=== PATIENT | female | born 1935 | race African-American/Black ===

== ENCOUNTER 2017-07-14 20:17 | Inpatient (IN) | payer OTHER ==
[~2017-07-14] VITALS: Ht 170.2 cm; Wt 99.8 kg
[2017-07-14 20:21] VITALS: BP_SYST 115
[2017-07-14] MEDS ORDERED: LON10 GT (20:46)
[2017-07-14] MEDS ORDERED: MIRT15TA7 GT (20:46)
[2017-07-14] MEDS ORDERED: SIME80TA GT (20:46)
[2017-07-14] MEDS ORDERED: LOSA100T11 GT (20:46)
[2017-07-14] MEDS ORDERED: NEU100 GT (20:46)
[2017-07-14] MEDS ORDERED: MULT GT (20:46)
[2017-07-14] MEDS ORDERED: CARV25TA55 GT (20:46)
[2017-07-14] MEDS ORDERED: NUT.237L30 PO (20:46)
[2017-07-14] MEDS ORDERED: HYDR-1189 GT (20:46)
[2017-07-14] MEDS ORDERED: PROSTAT SF GT (20:46)
[2017-07-14] MEDS ORDERED: ASA81 GT (20:46)
[2017-07-14] MEDS ORDERED: ATOR40TA68 GT (20:46)
[2017-07-14] MEDS ORDERED: HYDR100T25 GT (20:46)
[2017-07-14 21:05] LABS: BASOPHILS % (AUTO) 0.1 % (0.0-2.0); EOSINOPHILS # (AUTO) 0.2 K/uL (0.0-0.4); EOSINOPHILS % (AUTO) 1.4 % (0.0-4.0); LYMPHOCYTES # (AUTO) 0.8 K/uL (1.0-5.5); LYMPHOCYTES % (AUTO) 5.6 % (20.5-51.5); MEAN CORPUSCULAR HEMOGLOBIN 23 pg (27-31); MEAN CORPUSCULAR HGB CONC 31 % (32-36); MEAN CORPUSCULAR VOLUME 74 fL (79.0-98.0); MONOCYTES # (AUTO) 0.6 K/uL (0.0-1.0); MONOCYTES % (AUTO) 4.5 % (1.7-9.3); NEUTROPHILS # (AUTO) 12.8 K/uL (1.8-7.7); NEUTROPHILS % (AUTO) 88.4 % (40.0-70.0); RED BLOOD CELL COUNT(AUTO) 2.41 MIL/uL (4.2-6.2); RED CELL DISTRIBUTION WIDTH 18.8 % (9.0-15.0); WHITE BLOOD COUNT (AUTO) 14.4 K/uL (4.8-10.8)
[2017-07-14 21:14] LABS: ANION GAP 3 (5-15); CALCIUM 11.2 mg/dL (8.4-11.0); CREATININE 1.16 mg/dL (0.55-1.30); GLUCOSE 151 mg/dL (70-99)
[2017-07-14 21:18] LABS: HEMATOCRIT 17.8 % (36-48); HEMOGLOBIN 5.4 g/dL (12.0-16.0); INR 1.2 (0.8-1.2)
[2017-07-14 21:21] LABS: POTASSIUM 6.5 mmol/L (3.5-5.1); UREA NITROGEN, BLOOD 106 mg/dL (8-21)
[2017-07-14 21:23] LABS: CHLORIDE 137 mmol/L (98-107); SODIUM SERUM 160 mmol/L (136-145)
[2017-07-14 21:24] LABS: PLATELET COUNT (AUTO) 132 K/uL (130-430)
[2017-07-14] MEDS ORDERED: NACL 0.9% 1,000 ML IV ONE (21:30)
[2017-07-14 21:32] LABS: ALANINE AMINOTRANSFERASE 96 U/L (12-78); ASPARTATE AMINOTRANSFERASE 65 U/L (10-37); TOTAL BILIRUBIN 0.3 mg/dL (0.0-1.0)
[2017-07-14] MEDS ORDERED: ONDANSETRON HCL 4 MG/2 ML VIAL IVP PRN (23:00)
[2017-07-14] MEDS ORDERED: MORPHINE 2 MG/ML INJ. SYRINGE IVP PRN (23:00)
[2017-07-14] MEDS ORDERED: SODIUM POLYSTYRENE SULFONATE 15 GM/60 ML UDBTL GT ONE (23:00)
[2017-07-14] MEDS ORDERED: DIPHENHYDRAMINE HCL 12.5 MG/5 ML UDC NG ONE (23:15)
[2017-07-14] MEDS: FUROSEMIDE 40 MG/4 ML VIAL IVP SCH (23:15)
[2017-07-14] MEDS ORDERED: FUROSEMIDE 40 MG/4 ML VIAL IVP ONE (23:30)
[2017-07-14] MEDS ORDERED: ACETAMINOPHEN 650 MG/20.3 ML UDC GT PRN (23:30)
[2017-07-14] MEDS ORDERED: SODIUM POLYSTYRENE SULFONATE 15 GM/60 ML UDBTL GT SCH (23:30)
[2017-07-15] VITALS (10 sets, daily range): BP systolic 88–127
[2017-07-15 00:05] LABS: TOTAL IRON BIND. CAPACITY 221 ug/dL (250-450)
[2017-07-15 00:17] LABS: FREE T4 (FREE THYROXINE) 0.5 ng/dL (0.6-1.6); PHOSPHORUS 2.5 mg/dL (2.7-4.5); THYROID STIMULATING HORMONE 3.99 uIu/mL (0.34-4.82)
[2017-07-15] MEDS: NACL 0.9% 1,000 ML IV SCH ×3 (00:36→14:19)
[2017-07-15] MEDS: ACETAMINOPHEN 650 MG/20.3 ML UDC GT SCH ×2 (00:36→08:18)
[2017-07-15] MEDS ORDERED: NACL 0.9% 1,000 ML IV ONE (01:15)
[2017-07-15] MEDS ORDERED: DIPHENHYDRAMINE HCL 12.5 MG/5 ML UDC PO ONE (01:15)
[2017-07-15] MEDS ORDERED: PIPERACILLIN/TAZO 3.375/DEX-IS 50 ML IV ONE (01:30)
[2017-07-15] MEDS ORDERED: PIPERACILLIN/TAZOBACTAM 3.375 GM/VIAL (ZOSYN) IV ONE ×2 (01:43→02:26)
[2017-07-15 02:25] LABS: CALCIUM 10.7 mg/dL (8.4-11.0); CREATININE 1.11 mg/dL (0.55-1.30); GLUCOSE 111 mg/dL (70-99); SODIUM SERUM 157 mmol/L (136-145); UREA NITROGEN, BLOOD 100 mg/dL (8-21)
[2017-07-15 02:28] LABS: CHLORIDE 137 mmol/L (98-107); POTASSIUM 6.2 mmol/L (3.5-5.1)
[2017-07-15 02:29] LABS: ANION GAP < 3 (5-15)
[2017-07-15] MEDS ORDERED: SODIUM POLYSTYRENE SULFONATE 15 GM/60 ML UDBTL GT ONE (03:00)
[2017-07-15] MEDS ORDERED: CALCIUM GLUCONATE 2 GM in NS 100 ML IV ONE (03:00)
[2017-07-15] MEDS ORDERED: INSULIN REGULAR, HUMAN 100 UNITS/ML, 10 ML VIAL IVP ONE (03:00)
[2017-07-15] MEDS ORDERED: DEXTROSE 50% JECT 50 ML DISP.SYRIN IVP ONE (03:00)
[2017-07-15] MEDS ORDERED: SODIUM POLYSTYRENE SULFONATE 15 GM/60 ML UDBTL ONE ×2 (03:45→17:27)
[2017-07-15] MEDS ORDERED: CALCIUM GLUCONATE 1 GM/10 ML VIAL ONE ×2 (04:05→04:07)
[2017-07-15 04:48] LABS: CALCIUM 10.6 mg/dL (8.4-11.0); CHOLESTEROL 52 mg/dL (<200); CREATININE 1.18 mg/dL (0.55-1.30); GLUCOSE 177 mg/dL (70-99); HDL CHOLESTEROL 35 mg/dL (>55); LDL CHOLESTEROL 26 mg/dL (<100); POTASSIUM 5.4 mmol/L (3.5-5.1); SODIUM SERUM 157 mmol/L (136-145); TRIGLYCERIDES 37 mg/dL (30-150); UREA NITROGEN, BLOOD 100 mg/dL (8-21)
[2017-07-15 04:54] LABS: ANION GAP < 3 (5-15); CHLORIDE 136 mmol/L (98-107)
[2017-07-15 05:25] LABS: CLARITY/URINE CLOUDY (CLEAR); COLOR,URINE YELLOW (YELLOW)
[2017-07-15 05:26] LABS: GLUCOSE,URINE NEGATIVE (NEGATIVE); KETONES,URINE 2+ (NEGATIVE); PROTEIN URINE 1+ (NEGATIVE)
[2017-07-15 05:27] LABS: BILIRUBIN,URINE NEGATIVE (NEGATIVE); BLOOD, URINE 3+ (NEGATIVE); LEUKOCYTE ESTERASE ,URINE 4+ (NEGATIVE); NITRITE, URINE POSITIVE (NEGATIVE); UROBILINOGEN,URINE 0.2 (0.2-1.0)
[2017-07-15 05:32] LABS: BACTERIA,URINE MODERATE /HPF (None Seen); RBC,URINE >100 /HPF (0-3); WBC,URINE >100 /HPF (0-3)
[2017-07-15] MEDS: PIPERACILLIN/TAZO 3.375/DEX-IS 50 ML IV SCH ×3 (06:51→17:22)
[2017-07-15] MEDS: GABAPENTIN 100 MG CAPSULE GT SCH ×3 (08:18→21:35)
[2017-07-15] MEDS: CARVEDILOL 25 MG TABLET (COREG) GT SCH ×2 (08:27→21:34)
[2017-07-15] MEDS: MINOXIDIL 10 MG TABLET (LONITEN) GT SCH (08:27)
[2017-07-15] MEDS: LOSARTAN POTASSIUM 50 MG TABLET (COZAAR) GT SCH (08:27)
[2017-07-15] MEDS: FUROSEMIDE 40 MG/4 ML VIAL IVP SCH (12:03)
[2017-07-15 15:30] LABS: BASOPHILS % (AUTO) 0.2 % (0.0-2.0); EOSINOPHILS # (AUTO) 0.2 K/uL (0.0-0.4); EOSINOPHILS % (AUTO) 1.4 % (0.0-4.0); HEMATOCRIT 25.3 % (36-48); HEMOGLOBIN 7.8 g/dL (12.0-16.0); LYMPHOCYTES # (AUTO) 0.8 K/uL (1.0-5.5); LYMPHOCYTES % (AUTO) 5.8 % (20.5-51.5); MEAN CORPUSCULAR HEMOGLOBIN 24 pg (27-31); MEAN CORPUSCULAR HGB CONC 31 % (32-36); MONOCYTES # (AUTO) 0.6 K/uL (0.0-1.0); MONOCYTES % (AUTO) 4.7 % (1.7-9.3); NEUTROPHILS # (AUTO) 11.8 K/uL (1.8-7.7); NEUTROPHILS % (AUTO) 87.9 % (40.0-70.0); PLATELET COUNT (AUTO) 144 K/uL (130-430); RED BLOOD CELL COUNT(AUTO) 3.21 MIL/uL (4.2-6.2); RED CELL DISTRIBUTION WIDTH 20.7 % (9.0-15.0); WHITE BLOOD COUNT (AUTO) 13.4 K/uL (4.8-10.8)
[2017-07-15 15:32] LABS: MEAN CORPUSCULAR VOLUME 79 fL (79.0-98.0)
[2017-07-15 15:36] LABS: CREATININE 1.14 mg/dL (0.55-1.30); GLUCOSE 137 mg/dL (70-99); POTASSIUM 5.2 mmol/L (3.5-5.1); UREA NITROGEN, BLOOD 93 mg/dL (8-21)
[2017-07-15 15:44] LABS: ANION GAP 5 (5-15); SODIUM SERUM 159 mmol/L (136-145)
[2017-07-15 15:53] LABS: CHLORIDE 134 mmol/L (98-107)
[2017-07-15] MEDS: LACTULOSE 20 GM/30 ML UDC PO SCH ×2 (17:22→21:37)
[2017-07-15] MEDS: SODIUM POLYSTYRENE SULFONATE 15 GM/60 ML UDBTL GT SCH ×2 (17:23→21:37)
[2017-07-15] MEDS ORDERED: LACTULOSE 20 GM/30 ML UDC ONE (17:26)
[2017-07-15] MEDS: 0.45% NACL 1,000 ML IV SCH ×2 (18:38→22:30)
[2017-07-15 20:43] LABS: GLUCOSE 144 mg/dL (70-99); POTASSIUM 4.8 mmol/L (3.5-5.1)
[2017-07-15 20:54] LABS: UREA NITROGEN, BLOOD 88 mg/dL (8-21)
[2017-07-15] MEDS ORDERED: FUROSEMIDE 20 MG/2 ML VIAL IVP ONE (21:00)
[2017-07-15 21:06] LABS: ANION GAP 6 (5-15)
[2017-07-15 21:11] LABS: CHLORIDE 137 mmol/L (98-107); SODIUM SERUM 162 mmol/L (136-145)
[2017-07-15] MEDS: ATORVASTATIN 20 MG TABLET GT SCH (21:35)
[2017-07-15] MEDS: MIRTAZAPINE 15 MG TABLET GT SCH (21:36)
[2017-07-16] MEDS: PIPERACILLIN/TAZO 3.375/DEX-IS 50 ML IV SCH ×4 (00:27→18:16)
[2017-07-16 00:37] VITALS: BP_SYST 103
[2017-07-16] MEDS: 0.45% NACL 1,000 ML IV SCH ×5 (02:30→18:15)
[2017-07-16] MEDS: SODIUM POLYSTYRENE SULFONATE 15 GM/60 ML UDBTL GT SCH (04:11)
[2017-07-16 04:20] VITALS: BP_SYST 137
[2017-07-16 06:44] LABS: BASOPHILS % (AUTO) 0.1 % (0.0-2.0); EOSINOPHILS # (AUTO) 0.2 K/uL (0.0-0.4); EOSINOPHILS % (AUTO) 1.3 % (0.0-4.0); HEMOGLOBIN 8.1 g/dL (12.0-16.0); LYMPHOCYTES # (AUTO) 0.9 K/uL (1.0-5.5); LYMPHOCYTES % (AUTO) 5.7 % (20.5-51.5); MEAN CORPUSCULAR HEMOGLOBIN 24 pg (27-31); MEAN CORPUSCULAR HGB CONC 31 % (32-36); MEAN CORPUSCULAR VOLUME 78 fL (79.0-98.0); MONOCYTES # (AUTO) 0.6 K/uL (0.0-1.0); MONOCYTES % (AUTO) 3.8 % (1.7-9.3); NEUTROPHILS # (AUTO) 14.8 K/uL (1.8-7.7); NEUTROPHILS % (AUTO) 89.1 % (40.0-70.0); PLATELET COUNT (AUTO) 119 K/uL (130-430); RED BLOOD CELL COUNT(AUTO) 3.35 MIL/uL (4.2-6.2); RED CELL DISTRIBUTION WIDTH 20.9 % (9.0-15.0); WHITE BLOOD COUNT (AUTO) 16.5 K/uL (4.8-10.8)
[2017-07-16 07:07] LABS: ALANINE AMINOTRANSFERASE 110 U/L (12-78); ANION GAP 5 (5-15); ASPARTATE AMINOTRANSFERASE 85 U/L (10-37); CREATININE 1.22 mg/dL (0.55-1.30); GLUCOSE 158 mg/dL (70-99); POTASSIUM 4.4 mmol/L (3.5-5.1); TOTAL BILIRUBIN 0.4 mg/dL (0.0-1.0); UREA NITROGEN, BLOOD 84 mg/dL (8-21)
[2017-07-16 07:14] LABS: SODIUM SERUM 161 mmol/L (136-145)
[2017-07-16 07:15] LABS: CHLORIDE 136 mmol/L (98-107)
[2017-07-16 08:55] VITALS: BP_SYST 156
[2017-07-16] MEDS: GABAPENTIN 100 MG CAPSULE GT SCH ×3 (10:26→21:37)
[2017-07-16] MEDS: PANTOPRAZOLE GRANULES PACKET 40 MG GT SCH (10:26)
[2017-07-16] MEDS: MINOXIDIL 10 MG TABLET (LONITEN) GT SCH (10:31)
[2017-07-16] MEDS: LOSARTAN POTASSIUM 50 MG TABLET (COZAAR) GT SCH (10:31)
[2017-07-16] MEDS: LACTULOSE 20 GM/30 ML UDC PO SCH ×3 (10:32→21:37)
[2017-07-16] MEDS: CARVEDILOL 25 MG TABLET (COREG) GT SCH ×2 (10:32→21:38)
[2017-07-16 11:45] VITALS: BP_SYST 152
[2017-07-16 12:07] LABS: FOLATE (FOLIC ACID) 10.9 ng/mL (>3.0); T4 (THYROXINE) 5.1 ug/dL (4.5-12.0)
[2017-07-16 16:44] VITALS: BP_SYST 135
[2017-07-16 17:46] LABS: ANION GAP 8 (5-15); CALCIUM 10.9 mg/dL (8.4-11.0); CREATININE 1.28 mg/dL (0.55-1.30); GLUCOSE 175 mg/dL (70-99); POTASSIUM 4.2 mmol/L (3.5-5.1); UREA NITROGEN, BLOOD 79 mg/dL (8-21)
[2017-07-16 17:52] LABS: SODIUM SERUM 163 mmol/L (136-145)
[2017-07-16 17:53] LABS: CHLORIDE 137 mmol/L (98-107)
[2017-07-16 20:00] VITALS: BP_SYST 131
[2017-07-16] MEDS: MIRTAZAPINE 15 MG TABLET GT SCH (21:37)
[2017-07-16] MEDS: ATORVASTATIN 20 MG TABLET GT SCH (21:37)
[2017-07-16] MEDS: D5W 1,000 ML IV SCH (21:38)
[2017-07-17] MEDS: PIPERACILLIN/TAZO 3.375/DEX-IS 50 ML IV SCH ×5 (00:18→23:57)
[2017-07-17 00:42] VITALS: BP_SYST 94
[2017-07-17 04:01] VITALS: BP_SYST 122
[2017-07-17 05:59] LABS: EOSINOPHILS # (AUTO) 0.2 K/uL (0.0-0.4); LYMPHOCYTES # (AUTO) 0.8 K/uL (1.0-5.5)
[2017-07-17] MEDS: D5W 1,000 ML IV SCH ×2 (06:16→21:47)
[2017-07-17 06:45] LABS: ALANINE AMINOTRANSFERASE 73 U/L (12-78); ALBUMIN 1.6 g/dL (3.4-4.8); ANION GAP 8 (5-15); ASPARTATE AMINOTRANSFERASE 44 U/L (10-37); CALCIUM 10.3 mg/dL (8.4-11.0); GLUCOSE 269 mg/dL (70-99); TOTAL BILIRUBIN 0.3 mg/dL (0.0-1.0); UREA NITROGEN, BLOOD 73 mg/dL (8-21)
[2017-07-17 06:49] LABS: BASOPHILS % (AUTO) 0.2 % (0.0-2.0); EOSINOPHILS % (AUTO) 1.5 % (0.0-4.0); LYMPHOCYTES % (AUTO) 7.4 % (20.5-51.5); MEAN CORPUSCULAR HEMOGLOBIN 24 pg (27-31); MEAN CORPUSCULAR HGB CONC 31 % (32-36); MEAN CORPUSCULAR VOLUME 78 fL (79.0-98.0); MONOCYTES # (AUTO) 0.4 K/uL (0.0-1.0); MONOCYTES % (AUTO) 3.9 % (1.7-9.3); PLATELET COUNT (AUTO) 101 K/uL (130-430); RED BLOOD CELL COUNT(AUTO) 2.75 MIL/uL (4.2-6.2); WHITE BLOOD COUNT (AUTO) 11.4 K/uL (4.8-10.8)
[2017-07-17 06:51] LABS: SODIUM SERUM 160 mmol/L (136-145)
[2017-07-17 06:52] LABS: CHLORIDE 133 mmol/L (98-107)
[2017-07-17 06:54] LABS: HEMATOCRIT 21.4 % (36-48); HEMOGLOBIN 6.7 g/dL (12.0-16.0)
[2017-07-17 09:57] VITALS: BP_SYST 147
[2017-07-17] MEDS: LACTULOSE 20 GM/30 ML UDC PO SCH ×3 (09:59→21:27)
[2017-07-17] MEDS: PANTOPRAZOLE GRANULES PACKET 40 MG GT SCH (10:00)
[2017-07-17] MEDS: GABAPENTIN 100 MG CAPSULE GT SCH ×3 (10:00→21:27)
[2017-07-17] MEDS: MINOXIDIL 10 MG TABLET (LONITEN) GT SCH (10:00)
[2017-07-17] MEDS: LOSARTAN POTASSIUM 50 MG TABLET (COZAAR) GT SCH (10:00)
[2017-07-17] MEDS: CARVEDILOL 25 MG TABLET (COREG) GT SCH ×2 (10:01→21:00)
[2017-07-17 12:13] VITALS: BP_SYST 117
[2017-07-17 16:02] VITALS: BP_SYST 124
[2017-07-17 20:00] VITALS: BP_SYST 98
[2017-07-17] MEDS: MIRTAZAPINE 15 MG TABLET GT SCH (21:27)
[2017-07-17] MEDS: ATORVASTATIN 20 MG TABLET GT SCH (21:27)
[2017-07-18] VITALS (9 sets, daily range): BP systolic 94–144
[2017-07-18] MEDS: PIPERACILLIN/TAZO 3.375/DEX-IS 50 ML IV SCH (05:29)
[2017-07-18 07:26] LABS: BASOPHILS % (AUTO) 0.2 % (0.0-2.0); EOSINOPHILS # (AUTO) 0.2 K/uL (0.0-0.4); EOSINOPHILS % (AUTO) 2.1 % (0.0-4.0); LYMPHOCYTES # (AUTO) 0.7 K/uL (1.0-5.5); LYMPHOCYTES % (AUTO) 9.9 % (20.5-51.5); MEAN CORPUSCULAR HEMOGLOBIN 25 pg (27-31); MEAN CORPUSCULAR HGB CONC 32 % (32-36); MEAN CORPUSCULAR VOLUME 79 fL (79.0-98.0); MONOCYTES # (AUTO) 0.4 K/uL (0.0-1.0); NEUTROPHILS # (AUTO) 6.1 K/uL (1.8-7.7); NEUTROPHILS % (AUTO) 81.8 % (40.0-70.0); PLATELET COUNT (AUTO) 90 K/uL (130-430); RED BLOOD CELL COUNT(AUTO) 2.76 MIL/uL (4.2-6.2); RED CELL DISTRIBUTION WIDTH 21.1 % (9.0-15.0)
[2017-07-18] MEDS: D5W 1,000 ML IV SCH (07:47)
[2017-07-18 07:51] LABS: WHITE BLOOD COUNT (AUTO) 7.4 K/uL (4.8-10.8)
[2017-07-18 07:55] LABS: HEMATOCRIT 21.8 % (36-48); HEMOGLOBIN 6.9 g/dL (12.0-16.0)
[2017-07-18] MEDS: LACTULOSE 20 GM/30 ML UDC PO SCH ×3 (09:00→21:38)
[2017-07-18] MEDS: GABAPENTIN 100 MG CAPSULE GT SCH ×3 (09:00→21:37)
[2017-07-18 12:45] LABS: ANION GAP 11 (5-15); GLUCOSE 321 mg/dL (70-99); POTASSIUM 4.2 mmol/L (3.5-5.1); SODIUM SERUM 157 mmol/L (136-145)
[2017-07-18 12:46] LABS: ALANINE AMINOTRANSFERASE 64 U/L (12-78); ASPARTATE AMINOTRANSFERASE 30 U/L (10-37); CALCIUM 10.4 mg/dL (8.4-11.0); TOTAL BILIRUBIN 0.3 mg/dL (0.0-1.0); UREA NITROGEN, BLOOD 61 mg/dL (8-21)
[2017-07-18 12:47] LABS: LIPASE 168 U/L (73-393)
[2017-07-18 12:49] LABS: CHLORIDE 124 mmol/L (98-107)
[2017-07-18 13:00] LABS: BILIRUBIN,DIRECT 0.1 mg/dL (0.0-0.3)
[2017-07-18] MEDS: MEROPENEM 1 GM in NS 100 ML IV SCH ×2 (14:33→21:30)
[2017-07-18] MEDS: PANTOPRAZOLE GRANULES PACKET 40 MG GT SCH (15:39)
[2017-07-18] MEDS: MINOXIDIL 10 MG TABLET (LONITEN) GT SCH (15:40)
[2017-07-18] MEDS: CARVEDILOL 25 MG TABLET (COREG) GT SCH ×2 (15:40→21:00)
[2017-07-18] MEDS: LOSARTAN POTASSIUM 50 MG TABLET (COZAAR) GT SCH (15:41)
[2017-07-18] MEDS: INSULIN REGULAR, HUMAN 100 UNITS/ML, 10 ML VIAL (novoLIN R) SUBCUT PRN (17:58)
[2017-07-18] MEDS ORDERED: NACL 0.9% 1,000 ML IV ONE (18:15)
[2017-07-18] MEDS: ATORVASTATIN 20 MG TABLET GT SCH (21:37)
[2017-07-18] MEDS: MIRTAZAPINE 15 MG TABLET GT SCH (21:38)
[2017-07-18] MEDS ORDERED: GOLYTELY / COLYTE SOLUTION 4 LITERS GT ONE (21:50)
[2017-07-18 22:33] LABS: ANION GAP 12 (5-15); CALCIUM 10.3 mg/dL (8.4-11.0); CREATININE 1.21 mg/dL (0.55-1.30); GLUCOSE 308 mg/dL (70-99); POTASSIUM 4.6 mmol/L (3.5-5.1); SODIUM SERUM 152 mmol/L (136-145); UREA NITROGEN, BLOOD 61 mg/dL (8-21)
[2017-07-18 22:37] LABS: CHLORIDE 125 mmol/L (98-107)
[2017-07-19] VITALS (7 sets, daily range): BP systolic 121–160
[2017-07-19] MEDS: MEROPENEM 1 GM in NS 100 ML IV SCH (05:37)
[2017-07-19 07:30] LABS: BASOPHILS % (AUTO) 0.1 % (0.0-2.0); EOSINOPHILS # (AUTO) 0.2 K/uL (0.0-0.4); EOSINOPHILS % (AUTO) 2.6 % (0.0-4.0); HEMATOCRIT 31.8 % (36-48); HEMOGLOBIN 10.2 g/dL (12.0-16.0); LYMPHOCYTES # (AUTO) 0.8 K/uL (1.0-5.5); LYMPHOCYTES % (AUTO) 11.4 % (20.5-51.5); MEAN CORPUSCULAR HEMOGLOBIN 26 pg (27-31); MEAN CORPUSCULAR HGB CONC 32 % (32-36); MEAN CORPUSCULAR VOLUME 81 fL (79.0-98.0); MONOCYTES # (AUTO) 0.4 K/uL (0.0-1.0); MONOCYTES % (AUTO) 5.4 % (1.7-9.3); NEUTROPHILS # (AUTO) 5.2 K/uL (1.8-7.7); NEUTROPHILS % (AUTO) 80.5 % (40.0-70.0); PLATELET COUNT (AUTO) 101 K/uL (130-430); RED BLOOD CELL COUNT(AUTO) 3.93 MIL/uL (4.2-6.2); RED CELL DISTRIBUTION WIDTH 19.6 % (9.0-15.0)
[2017-07-19 07:55] LABS: INR 1.2 (0.8-1.2)
[2017-07-19 08:00] LABS: ANION GAP 11 (5-15); CALCIUM 10.2 mg/dL (8.4-11.0); CREATININE 1.15 mg/dL (0.55-1.30); GLUCOSE 176 mg/dL (70-99); SODIUM SERUM 154 mmol/L (136-145); UREA NITROGEN, BLOOD 53 mg/dL (8-21)
[2017-07-19 08:04] LABS: CHLORIDE 125 mmol/L (98-107)
[2017-07-19 08:13] LABS: ALANINE AMINOTRANSFERASE 59 U/L (12-78); ALBUMIN 1.9 g/dL (3.4-4.8); ASPARTATE AMINOTRANSFERASE 33 U/L (10-37); TOTAL BILIRUBIN 0.4 mg/dL (0.0-1.0)
[2017-07-19] MEDS ORDERED: MEPERIDINE HCL/PF 100 MG/ML AMP ONE (08:14)
[2017-07-19] MEDS ORDERED: MIDAZOLAM HCL 5 MG/5 ML VIAL ONE ×2 (08:14→17:17)
[2017-07-19 08:16] LABS: WHITE BLOOD COUNT (AUTO) 6.6 K/uL (4.8-10.8)
[2017-07-19] MEDS: PANTOPRAZOLE GRANULES PACKET 40 MG GT SCH (09:00)
[2017-07-19] MEDS: GABAPENTIN 100 MG CAPSULE GT SCH ×3 (09:00→21:18)
[2017-07-19] MEDS: MINOXIDIL 10 MG TABLET (LONITEN) GT SCH (09:00)
[2017-07-19] MEDS: LOSARTAN POTASSIUM 50 MG TABLET (COZAAR) GT SCH (09:00)
[2017-07-19] MEDS: LACTULOSE 20 GM/30 ML UDC PO SCH ×3 (09:00→21:18)
[2017-07-19] MEDS: CARVEDILOL 25 MG TABLET (COREG) GT SCH ×2 (09:00→21:00)
[2017-07-19] MEDS ORDERED: D5/0.45 NS 1,000 ML IV SCH (10:00)
[2017-07-19 10:19] LABS: HEMOGLOBIN A1C 5.8 % (4.8-5.6)
[2017-07-19] MEDS: cefTRIAXone 1 GM in D5W 50 ML IV SCH ×2 (13:54→13:57)
[2017-07-19] MEDS ORDERED: MEPERIDINE HCL/PF 50 MG/ML AMP ONE (17:16)
[2017-07-19] MEDS: D5W 1,000 ML IV SCH (18:52)
[2017-07-19] MEDS: COLISTIMETHATE SODIUM 150 MG VIAL INH SCH (19:40)
[2017-07-19] MEDS: MIRTAZAPINE 15 MG TABLET GT SCH (21:19)
[2017-07-19] MEDS: ATORVASTATIN 20 MG TABLET GT SCH (21:19)
[2017-07-20] MEDS: INSULIN REGULAR, HUMAN 100 UNITS/ML, 10 ML VIAL (novoLIN R) SUBCUT PRN ×5 (01:23→23:49)
[2017-07-20 03:46] VITALS: BP_SYST 120
[2017-07-20] MEDS: D5W 1,000 ML IV SCH ×3 (05:25→23:53)
[2017-07-20 07:32] LABS: BASOPHILS % (AUTO) 0.1 % (0.0-2.0); EOSINOPHILS # (AUTO) 0.1 K/uL (0.0-0.4); EOSINOPHILS % (AUTO) 1.6 % (0.0-4.0); HEMATOCRIT 30.8 % (36-48); HEMOGLOBIN 10.2 g/dL (12.0-16.0); LYMPHOCYTES # (AUTO) 0.4 K/uL (1.0-5.5); LYMPHOCYTES % (AUTO) 5.7 % (20.5-51.5); MEAN CORPUSCULAR HEMOGLOBIN 26 pg (27-31); MEAN CORPUSCULAR HGB CONC 33 % (32-36); MEAN CORPUSCULAR VOLUME 80 fL (79.0-98.0); MONOCYTES # (AUTO) 0.4 K/uL (0.0-1.0); MONOCYTES % (AUTO) 5.3 % (1.7-9.3); NEUTROPHILS # (AUTO) 6.7 K/uL (1.8-7.7); NEUTROPHILS % (AUTO) 87.3 % (40.0-70.0); RED BLOOD CELL COUNT(AUTO) 3.86 MIL/uL (4.2-6.2); RED CELL DISTRIBUTION WIDTH 20.3 % (9.0-15.0); WHITE BLOOD COUNT (AUTO) 7.6 K/uL (4.8-10.8)
[2017-07-20] MEDS: COLISTIMETHATE SODIUM 150 MG VIAL INH SCH ×2 (07:42→19:51)
[2017-07-20 07:49] LABS: ALANINE AMINOTRANSFERASE 51 U/L (12-78); ALBUMIN 1.7 g/dL (3.4-4.8); ANION GAP 10 (5-15); ASPARTATE AMINOTRANSFERASE 48 U/L (10-37); CALCIUM 10.5 mg/dL (8.4-11.0); CREATININE 1.01 mg/dL (0.55-1.30); GLUCOSE 222 mg/dL (70-99); POTASSIUM 3.9 mmol/L (3.5-5.1); SODIUM SERUM 150 mmol/L (136-145); TOTAL BILIRUBIN 0.4 mg/dL (0.0-1.0); UREA NITROGEN, BLOOD 51 mg/dL (8-21)
[2017-07-20 07:58] LABS: CHLORIDE 124 mmol/L (98-107)
[2017-07-20 08:23] LABS: PLATELET COUNT (AUTO) 96 K/uL (130-430)
[2017-07-20] MEDS: GABAPENTIN 100 MG CAPSULE GT SCH ×3 (09:43→22:52)
[2017-07-20] MEDS: PANTOPRAZOLE GRANULES PACKET 40 MG GT SCH (09:49)
[2017-07-20] MEDS: MINOXIDIL 10 MG TABLET (LONITEN) GT SCH (09:51)
[2017-07-20] MEDS: LACTULOSE 20 GM/30 ML UDC PO SCH ×3 (09:52→22:51)
[2017-07-20] MEDS: LOSARTAN POTASSIUM 50 MG TABLET (COZAAR) GT SCH (10:03)
[2017-07-20] MEDS: CARVEDILOL 25 MG TABLET (COREG) GT SCH ×2 (10:06→22:53)
[2017-07-20 11:31] VITALS: BP_SYST 148
[2017-07-20 14:34] LABS: ATYPICAL pANCA <1:20 titer (Neg:<1:20); CYTOPLASMIC (C-ANCA) <1:20 titer (Neg:<1:20); CYTOPLASMIC (P-ANCA) <1:20 titer (Neg:<1:20)
[2017-07-20 15:23] VITALS: BP_SYST 130
[2017-07-20 19:45] VITALS: BP_SYST 137
[2017-07-20] MEDS: CEFTAZIDIME 1 GM in D5W 50 ML IV SCH (22:51)
[2017-07-20] MEDS: ATORVASTATIN 20 MG TABLET GT SCH (22:52)
[2017-07-20] MEDS: MIRTAZAPINE 15 MG TABLET GT SCH (22:53)
[2017-07-21 00:19] VITALS: BP_SYST 106
[2017-07-21 05:26] VITALS: BP_SYST 107
[2017-07-21] MEDS: INSULIN REGULAR, HUMAN 100 UNITS/ML, 10 ML VIAL (novoLIN R) SUBCUT PRN ×3 (06:31→17:43)
[2017-07-21 08:00] VITALS: BP_SYST 125
[2017-07-21] MEDS: CARVEDILOL 25 MG TABLET (COREG) GT SCH ×2 (09:00→20:52)
[2017-07-21] MEDS: CEFTAZIDIME 1 GM in D5W 50 ML IV SCH ×2 (09:24→20:51)
[2017-07-21] MEDS: LOSARTAN POTASSIUM 50 MG TABLET (COZAAR) GT SCH (09:25)
[2017-07-21] MEDS: MINOXIDIL 10 MG TABLET (LONITEN) GT SCH (09:28)
[2017-07-21] MEDS: GABAPENTIN 100 MG CAPSULE GT SCH ×3 (09:41→20:52)
[2017-07-21] MEDS: PANTOPRAZOLE GRANULES PACKET 40 MG GT SCH (09:41)
[2017-07-21] MEDS: D5W 1,000 ML IV SCH ×2 (09:43→19:00)
[2017-07-21 09:51] LABS: ANION GAP 9 (5-15); CALCIUM 10.2 mg/dL (8.4-11.0); CHLORIDE 118 mmol/L (98-107); GLUCOSE 205 mg/dL (70-99); POTASSIUM 3.7 mmol/L (3.5-5.1); SODIUM SERUM 144 mmol/L (136-145); UREA NITROGEN, BLOOD 46 mg/dL (8-21)
[2017-07-21 12:10] VITALS: BP_SYST 112
[2017-07-21 16:26] VITALS: BP_SYST 146
[2017-07-21] MEDS: COLISTIMETHATE SODIUM 150 MG VIAL INH SCH (19:53)
[2017-07-21] MEDS: ATORVASTATIN 20 MG TABLET GT SCH (20:51)
[2017-07-21] MEDS: MIRTAZAPINE 15 MG TABLET GT SCH (20:51)
[2017-07-22 00:36] VITALS: BP_SYST 119
[2017-07-22] MEDS: INSULIN REGULAR, HUMAN 100 UNITS/ML, 10 ML VIAL (novoLIN R) SUBCUT PRN ×3 (01:27→12:25)
[2017-07-22] MEDS: D5W 1,000 ML IV SCH (05:46)
[2017-07-22 05:56] VITALS: BP_SYST 105
[2017-07-22 06:52] LABS: BASOPHILS % (AUTO) 0.3 % (0.0-2.0); EOSINOPHILS # (AUTO) 0.2 K/uL (0.0-0.4); EOSINOPHILS % (AUTO) 2.8 % (0.0-4.0); HEMATOCRIT 31.2 % (36-48); HEMOGLOBIN 10.1 g/dL (12.0-16.0); LYMPHOCYTES # (AUTO) 0.5 K/uL (1.0-5.5); LYMPHOCYTES % (AUTO) 6.4 % (20.5-51.5); MEAN CORPUSCULAR HEMOGLOBIN 26 pg (27-31); MEAN CORPUSCULAR HGB CONC 32 % (32-36); MEAN CORPUSCULAR VOLUME 81 fL (79.0-98.0); MONOCYTES # (AUTO) 0.1 K/uL (0.0-1.0); NEUTROPHILS # (AUTO) 6.6 K/uL (1.8-7.7); NEUTROPHILS % (AUTO) 88.5 % (40.0-70.0); RED BLOOD CELL COUNT(AUTO) 3.87 MIL/uL (4.2-6.2); RED CELL DISTRIBUTION WIDTH 21.4 % (9.0-15.0); WHITE BLOOD COUNT (AUTO) 7.4 K/uL (4.8-10.8)
[2017-07-22 07:00] LABS: ANION GAP 8 (5-15); CALCIUM 10.2 mg/dL (8.4-11.0); CHLORIDE 115 mmol/L (98-107); CREATININE 1.07 mg/dL (0.55-1.30); GLUCOSE 180 mg/dL (70-99); POTASSIUM 4.1 mmol/L (3.5-5.1); SODIUM SERUM 140 mmol/L (136-145); UREA NITROGEN, BLOOD 49 mg/dL (8-21)
[2017-07-22] MEDS: COLISTIMETHATE SODIUM 150 MG VIAL INH SCH (07:33)
[2017-07-22 08:16] LABS: PLATELET COUNT (AUTO) 126 K/uL (130-430)
[2017-07-22] MEDS: CARVEDILOL 25 MG TABLET (COREG) GT SCH (09:00)
[2017-07-22] MEDS: CEFTAZIDIME 1 GM in D5W 50 ML IV SCH (09:22)
[2017-07-22] MEDS: PANTOPRAZOLE GRANULES PACKET 40 MG GT SCH (09:23)
[2017-07-22] MEDS: GABAPENTIN 100 MG CAPSULE GT SCH ×2 (09:26→15:50)
[2017-07-22] MEDS: MINOXIDIL 10 MG TABLET (LONITEN) GT SCH (09:26)
[2017-07-22] MEDS: LOSARTAN POTASSIUM 50 MG TABLET (COZAAR) GT SCH (09:27)
[2017-07-22 11:26] VITALS: BP_SYST 125
[2017-07-22 13:23] VITALS: BP_SYST 124
[2017-07-22 16:13] VITALS: BP_SYST 171
[2017-07-22 17:14] VITALS: BP_SYST 120
== END 2017-07-22 19:10 | DRG 870 ==
LOC: SED 20:17 → STU 22:58
PROVIDERS: ADMIT Family Medicine; ATTEND Family Medicine
PROC: 5A1955Z Respiratory Ventilation, Greater than 96 Consecutive Hours (ICD-10-PCS; principal; 2017-07-14)
PROC: 30233N1 Transfusion of Nonautologous Red Blood Cells into Peripheral Vein, Percutaneous Approach (ICD-10-PCS; 2017-07-15)
PROC: 0DBP8ZZ Excision of Rectum, Via Natural or Artificial Opening Endoscopic (ICD-10-PCS; 2017-07-19)
PROC: 0DBL8ZZ Excision of Transverse Colon, Via Natural or Artificial Opening Endoscopic (ICD-10-PCS; 2017-07-19)
PROC: 0DB78ZX Excision of Stomach, Pylorus, Via Natural or Artificial Opening Endoscopic, Diagnostic (ICD-10-PCS; 2017-07-19 09:00)
DX: A41.9 Sepsis, unspecified organism (principal); J69.0 Pneumonitis due to inhalation of food and vomit; E43 Unspecified severe protein-calorie malnutrition; J90 Pleural effusion, not elsewhere classified; G93.40 Encephalopathy, unspecified; N17.9 Acute kidney failure, unspecified; Z99.11 Dependence on respirator [ventilator] status; J96.10 Chronic respiratory failure, unspecified whether with hypoxia or hypercapnia; N18.6 End stage renal disease; K92.2 Gastrointestinal hemorrhage, unspecified; E87.0 Hyperosmolality and hypernatremia; I12.0 Hypertensive chronic kidney disease with stage 5 chronic kidney disease or end stage renal disease; Z93.0 Tracheostomy status; E11.22 Type 2 diabetes mellitus with diabetic chronic kidney disease; D64.9 Anemia, unspecified; E66.01 Morbid (severe) obesity due to excess calories; R13.10 Dysphagia, unspecified; E87.5 Hyperkalemia; Z93.1 Gastrostomy status; M48.00 Spinal stenosis, site unspecified; E78.5 Hyperlipidemia, unspecified; E86.0 Dehydration; F03.90 Unspecified dementia, unspecified severity, without behavioral disturbance, psychotic disturbance, mood disturbance, and anxiety; K29.70 Gastritis, unspecified, without bleeding; K57.90 Diverticulosis of intestine, part unspecified, without perforation or abscess without bleeding; K62.3 Rectal prolapse; K63.5 Polyp of colon; Z16.24 Resistance to multiple antibiotics; Z78.9 Other specified health status; Z99.2 Dependence on renal dialysis; Z74.01 Bed confinement status; Z79.82 Long term (current) use of aspirin; Z85.3 Personal history of malignant neoplasm of breast; Z85.038 Personal history of other malignant neoplasm of large intestine; Z79.899 Other long term (current) drug therapy; Z68.34 Body mass index [BMI] 34.0-34.9, adult
CPT/HCPCS: 36415; 36600; 43239; 45380; 71010; 76604; 76700-TC; 80048; 80053; 80061; 80076; 81000-TC; 82150-TC; 82248-TC; 82272; 82607; 82728; 82746; 82803-TC; 82962; 83036; 83540-TC; 83550-TC; 83605; 83690-TC; 83735-TC; 83880; 84100-TC; 84436; 84439; 84443-TC; 84479; 84484; 85025; 85610-TC; 85730-TC; 86256; 86886; 86900; 86901; 86920; 87040-TC; 87045-TC; 87046; 87070-TC; 87081; 87086; 87186-TC; 87205-TC; 88305; 89055; 93005; 93306; 94002; 94003; 94640; 94760; 96360; 99285; J0610; J0696; J0713; J0770; J1815; J1940; J2175; J2185; J2250; J2543; J7030; J7040; J7042; J7050; J7060; P9021

== ENCOUNTER 2017-08-09 13:44 | Inpatient (IN) | payer OTHER ==
[~2017-08-09] VITALS: Ht 165.1 cm; Wt 89.8 kg
[2017-08-09] VITALS (7 sets, daily range): BP systolic 84–137
[~2017-08-09 13:44] MED LIST: ASA81 GT; ATOR40TA68 GT; CARV25TA55 GT; HYDR-1189 GT; LON10 GT; LOSA100T11 GT; MIRT15TA7 GT; MULT GT; NEU100 GT; NUT.237L30 PO; PROSTAT SF GT; SIME80TA GT
[2017-08-09 15:23] LABS: HEMOGLOBIN 7.2 g/dL (12.0-16.0); WHITE BLOOD COUNT (AUTO) 6.8 K/uL (4.8-10.8)
[2017-08-09 15:36] LABS: MEAN CORPUSCULAR HEMOGLOBIN 26 pg (27-31); MEAN CORPUSCULAR HGB CONC 31 % (32-36)
[2017-08-09 15:40] LABS: ANION GAP 17 (5-15); CALCIUM 9.6 mg/dL (8.4-11.0); CHLORIDE 112 mmol/L (98-107); CREATININE 2.02 mg/dL (0.55-1.30); GLUCOSE 329 mg/dL (70-99); POTASSIUM 4.9 mmol/L (3.5-5.1); SODIUM SERUM 141 mmol/L (136-145); UREA NITROGEN, BLOOD 82 mg/dL (8-21)
[2017-08-09 15:43] LABS: INR 1.4 (0.8-1.2); PROTHROMBIN TIME 14.8 SECS (9.5-12.5)
[2017-08-09 15:45] LABS: ALANINE AMINOTRANSFERASE 109 U/L (12-78); ALBUMIN 1.6 g/dL (3.4-4.8); ASPARTATE AMINOTRANSFERASE 112 U/L (10-37); TOTAL BILIRUBIN 0.4 mg/dL (0.0-1.0)
[2017-08-09 15:50] LABS: HEMATOCRIT 23.2 % (36-48); MEAN CORPUSCULAR VOLUME 83 fL (79.0-98.0); RED BLOOD CELL COUNT(AUTO) 2.81 MIL/uL (4.2-6.2)
[2017-08-09 15:51] LABS: RED CELL DISTRIBUTION WIDTH 23.2 % (9.0-15.0)
[2017-08-09 15:53] LABS: PLATELET COUNT (AUTO) 8 K/uL (130-430)
[2017-08-09] MEDS ORDERED: NOREPINEPHRINE BITARTRATE 4 MG in NS 246 ML IV ONE (16:15)
[2017-08-09] MEDS ORDERED: INSULIN REGULAR, HUMAN 10 UNITS/0.1 ML INJ IVP ONE (16:15)
[2017-08-09] MEDS ORDERED: NOREPINEPHRINE 4 MG/4 ML VIAL IV ONE (16:31)
[2017-08-09 16:40] LABS: ATYPICAL LYMPHOCYTES % 0 % (0-0); BAND % (MANUAL) 27 % (0-6); BASOPHILS % (MANUAL) 0 % (0-2); EOSINOPHILS % (MANUAL) 0 % (0-7); LYMPHOCYTES % (MANUAL) 2 % (20-46); METAMYELOCYTES % 12 % (0-0); MONOCYTES % (MANUAL) 0 % (0-11); MYELOCYTES % 3 % (0-0)
[2017-08-09] MEDS ORDERED: ONDANSETRON HCL 4 MG/2 ML VIAL IVP ONE (17:30)
[2017-08-09] MEDS ORDERED: MAGNESIUM SULFATE 50 ML IV PRN (18:00)
[2017-08-09] MEDS ORDERED: DOCUSATE SODIUM 100 MG CAPSULE PO PRN (18:00)
[2017-08-09] MEDS ORDERED: ACETAMINOPHEN 325 MG TABLET PO PRN (18:00)
[2017-08-09] MEDS ORDERED: POTASSIUM CHLORIDE 20 MEQ TAB.PRT.SR PO PRN (18:00)
[2017-08-09] MEDS ORDERED: LORazepam 2 MG/ML VIAL IVP PRN (18:00)
[2017-08-09] MEDS ORDERED: MORPHINE 2 MG/ML INJ. SYRINGE IVP PRN ×2 (18:00)
[2017-08-09] MEDS ORDERED: ONDANSETRON HCL 4 MG/2 ML VIAL IVP PRN (18:00)
[2017-08-09] MEDS ORDERED: ZOLPIDEM TARTRATE 5 MG TABLET PO PRN (18:00)
[2017-08-09] MEDS ORDERED: VANCOMYCIN HCL 1,000 MG in NS 250 ML IV SCH (19:00)
[2017-08-09] MEDS ORDERED: DOPamine PREMIX 250 ML IV ONE (20:51)
[2017-08-09] MEDS: D5NS 1,000 ML IV SCH (22:36)
[2017-08-09] MEDS ORDERED: CEFEPIME 1 GM/VIAL (MAXIPIME) ONE (22:38)
[2017-08-09] MEDS: CEFEPIME 1 GM in D5W 50 ML IV SCH (22:52)
[2017-08-09] MEDS: HYDROCORTISONE SOD SUCC 100 MG/2 ML VIAL IVP SCH (23:12)
[2017-08-10] VITALS (9 sets, daily range): BP systolic 67–121
[2017-08-10] MEDS: ALBUTEROL SULFATE 0.083% 2.5 MG/3 ML VIAL.NEB INH SCH ×2 (00:48→07:46)
[2017-08-10] MEDS ORDERED: NOREPINEPHRINE BITARTRATE 4 MG in NS 246 ML IV PRN (03:00)
[2017-08-10] MEDS: DOPamine PREMIX 250 ML IV PRN ×2 (03:18→07:53)
[2017-08-10] MEDS ORDERED: NOREPINEPHRINE 4 MG/4 ML VIAL IV ONE (03:41)
[2017-08-10] MEDS: HYDROCORTISONE SOD SUCC 100 MG/2 ML VIAL IVP SCH (06:10)
[2017-08-10] MEDS: D5NS 1,000 ML IV SCH (07:30)
[2017-08-10] MEDS ORDERED: PHYTONADIONE 10 MG in NS 50 ML IV ONE (08:00)
[2017-08-10] MEDS ORDERED: INSULIN ASPART 100 UNITS/ML, 10 ML VIAL (NovoLOG) SUBCUT PRN (08:15)
[2017-08-10] MEDS ORDERED: METOCLOPRAMIDE HCL 10 MG/2 ML VIAL IVP ONE (08:15)
[2017-08-10] MEDS ORDERED: DEXTROSE 50% JECT 50 ML DISP.SYRIN IVP PRN (08:15)
[2017-08-10 08:20] LABS: HEMATOCRIT 29.2 % (36-48); MEAN CORPUSCULAR HEMOGLOBIN 26 pg (27-31); MEAN CORPUSCULAR HGB CONC 31 % (32-36); MEAN CORPUSCULAR VOLUME 86 fL (79.0-98.0); RED BLOOD CELL COUNT(AUTO) 3.42 MIL/uL (4.2-6.2); WHITE BLOOD COUNT (AUTO) 8.3 K/uL (4.8-10.8)
[2017-08-10] MEDS ORDERED: LIDOCAINE 1%, 20 ML MDV 0 ML ONE (08:29)
[2017-08-10 08:39] LABS: PLATELET COUNT (AUTO) 34 K/uL (130-430)
[2017-08-10 08:56] LABS: ANION GAP 17 (5-15); CALCIUM 8.3 mg/dL (8.4-11.0); CHLORIDE 112 mmol/L (98-107); CREATININE 1.75 mg/dL (0.55-1.30); GLUCOSE 235 mg/dL (70-99); LACTATE DEHYDROGENASE 468 U/L (81-234); POTASSIUM 5.2 mmol/L (3.5-5.1); SODIUM SERUM 140 mmol/L (136-145); UREA NITROGEN, BLOOD 82 mg/dL (8-21)
[2017-08-10] MEDS: CEFEPIME 1 GM in D5W 50 ML IV SCH (09:00)
[2017-08-10 09:22] LABS: RETICULOCYTE COUNT 2.8 % (0.5-1.5)
[2017-08-10 10:10] LABS: BAND % (MANUAL) 30 % (0-6); BASOPHILS % (MANUAL) 0 % (0-2); EOSINOPHILS % (MANUAL) 0 % (0-7); LYMPHOCYTES % (MANUAL) 4 % (20-46); METAMYELOCYTES % 24 % (0-0); MONOCYTES % (MANUAL) 4 % (0-11); MYELOCYTES % 24 % (0-0)
[2017-08-10 10:11] LABS: CORRECTED WHITE BLOOD COUNT 2.3 K/uL (4.5-11.0)
[2017-08-10] MEDS ORDERED: SODIUM BICARBONATE 8.4% JECT 50 MEQ/50 ML SYRINGE IVP ONE (11:24)
[2017-08-10] MEDS ORDERED: EPINEPHrine JECT 1 MG/10 ML SYR IVP ONE (11:24)
[2017-08-10] MEDS ORDERED: METOCLOPRAMIDE HCL 10 MG/2 ML VIAL IVP SCH (12:00)
== END 2017-08-10 09:09 | disposition expired | DRG 871 ==
LOC: SED 13:44 → SIC 17:32
PROVIDERS: ADMIT General Practice; ATTEND General Practice
PROC: 5A1935Z Respiratory Ventilation, Less than 24 Consecutive Hours (ICD-10-PCS; 2017-08-09)
PROC: 30233N1 Transfusion of Nonautologous Red Blood Cells into Peripheral Vein, Percutaneous Approach (ICD-10-PCS; principal; 2017-08-10)
PROC: 5A12012 Performance of Cardiac Output, Single, Manual (ICD-10-PCS; 2017-08-10)
PROC: 30233R1 Transfusion of Nonautologous Platelets into Peripheral Vein, Percutaneous Approach (ICD-10-PCS; 2017-08-10)
DX: A41.9 Sepsis, unspecified organism (principal); E43 Unspecified severe protein-calorie malnutrition; J69.0 Pneumonitis due to inhalation of food and vomit; J96.20 Acute and chronic respiratory failure, unspecified whether with hypoxia or hypercapnia; I46.9 Cardiac arrest, cause unspecified; G93.41 Metabolic encephalopathy; N17.0 Acute kidney failure with tubular necrosis; Z66 Do not resuscitate; E11.10 Type 2 diabetes mellitus with ketoacidosis without coma; R65.21 Severe sepsis with septic shock; E87.2 Acidosis; Z99.11 Dependence on respirator [ventilator] status; D68.9 Coagulation defect, unspecified; Z93.0 Tracheostomy status; R13.10 Dysphagia, unspecified; D63.8 Anemia in other chronic diseases classified elsewhere; E78.5 Hyperlipidemia, unspecified; R57.1 Hypovolemic shock; I10 Essential (primary) hypertension; D69.6 Thrombocytopenia, unspecified; T68.XXXA Hypothermia, initial encounter; F01.50 Vascular dementia, unspecified severity, without behavioral disturbance, psychotic disturbance, mood disturbance, and anxiety; K57.90 Diverticulosis of intestine, part unspecified, without perforation or abscess without bleeding; R00.1 Bradycardia, unspecified; E66.9 Obesity, unspecified; Z68.32 Body mass index [BMI] 32.0-32.9, adult; Z85.028 Personal history of other malignant neoplasm of stomach; Z85.038 Personal history of other malignant neoplasm of large intestine; Z86.73 Personal history of transient ischemic attack (TIA), and cerebral infarction without residual deficits; Z93.1 Gastrostomy status; Z79.899 Other long term (current) drug therapy; Z79.82 Long term (current) use of aspirin
CPT/HCPCS: 36415; 36600; 71010; 80048; 80053; 82803-TC; 83605; 83615-TC; 83735-TC; 85007; 85027; 85044-TC; 85610-TC; 85730-TC; 86886; 86900; 86901; 86920; 87040-TC; 87070-TC; 87081; 87186-TC; 87205-TC; 92950; 93005; 94002; 94003; 94640; 96365; 96375; 99285; J0171; J0692; J1265; J1720; J1815; J1956; J2001; J2405; J3370; J3430; J7030; J7042; J7050; J7060; P9021; P9034